=== PATIENT | male | born 1950 ===

== ENCOUNTER 2020-06-28 10:01 | Outpatient (CLI) | payer MEDICARE, SELFPAY | END 2020-06-28 10:02 | disposition home or self-care (01) | LOC: CHSCOVIDVC 10:01 | DX: Z23 Encounter for immunization (principal) | CPT/HCPCS: 0011A; 91301 ==

== ENCOUNTER 2020-07-26 09:37 | Outpatient (CLI) | payer MEDICARE, SELFPAY | END 2020-07-26 09:38 | disposition home or self-care (01) | LOC: CHSCOVIDVC 09:37 | DX: Z23 Encounter for immunization (principal) | CPT/HCPCS: 0012A; 91301 ==